=== PATIENT | female | born 1945 | race Caucasian/White ===

== ENCOUNTER → 2022-03-10 | Day surgery (SDC) | payer MEDICARE ==
[~2022-03-10] VITALS: Ht 149.9 cm; Wt 50.5 kg
[~2022-03-10] MED LIST: 3IN1 COMMODE; ACETAMINOPHEN325 MG PO; LIPITOR20 MG PO; MAPAP500 MG PO; NEURONTIN300 MG PO; OS-CAL500 MG PO; PROLIA60 MG/1 ML SC; RISEDRONATE; VITAMIN D325 MC1 PO
[2022-03-10 07:55] LABS: HGB 13.6 g/dl (12.5-16.0); MCH 28.9 pg (25.0-31.0); MCHC 31.6 g/dL (32.0-36.0); MCV 91.3 fL (78.0-100.0); MPV 8.9 fL (6.0-9.5); RBC 4.71 M/uL (4.20-5.40); RDW 12.6 % (11.5-14.0); WBC 8.7 K/uL (4.0-10.5)
[2022-03-10 08:16] LABS: BILIRUBIN - TOTAL 0.3 mg/dL (0.2-1.0); BUN/CREAT RATIO (CALC) 32.9 RATIO; CREATININE 0.79 mg/dL (0.51-0.95); GLOBULIN (CALCULATION) 3.6 g/dL; POTASSIUM 3.7 mmol/L (3.5-5.1); TOTAL PROTEIN 7.6 g/dL (6.4-8.2)
== END | disposition home or self-care (01) ==
LOC: FAS 07:10
PROVIDERS: Surgery
DX: R19.5 Other fecal abnormalities (principal); Z88.0 Allergy status to penicillin; Z88.2 Allergy status to sulfonamides
CPT/HCPCS: 36415; 80053; J0690; J2704; J7120